=== PATIENT | female | born 1965 | race Two or more races ===

== ENCOUNTER 2020-09-16 10:43 | Inpatient (IN) | payer MEDICAID, OTHER ==
[~2020-09-16] VITALS: Ht 157.5 cm; Wt 56.7 kg
[2020-09-16] MEDS ORDERED: diphenhdrAMINE HCL 50 MG/1 ML VL IV ONE (11:00)
[2020-09-16] MEDS ORDERED: methylPREDNISolone SOD SUCC 125 MG/2 ML VL IV ONE (11:00)
[2020-09-16 11:34] LABS: Basophils # (auto) 0.1 10 ^3/uL (0-0.2); Basophils % (auto) 1.2 % (0.0-2.0); Eosinophils # (auto) 0.3 10 ^3/uL (0-0.8); Monocytes # (auto) 0.4 10 ^3/uL (0-1.3); White Blood Cell 6.4 10^3/uL (4.4-10.8)
[2020-09-16 11:37] LABS: Eosinophils % (auto) 5.4 % (0.0-7.0); Hematocrit 28.9 % (36.0-46.0); Hemoglobin 10.1 g/dL (12.2-16.2); Lymphocytes # (auto) 1.8 10 ^3/uL (0.4-5.4); Lymphocytes % (auto) 27.7 % (10.0-50.0); Mean Corpuscular Hemoglobin 30.1 pg (28.0-32.0); Mean Corpuscular Hgb Conc. 34.8 g/dL (32.0-36.0); Mean Corpuscular Volume 86.5 fL (80.0-100.0); Monocytes % (auto) 5.8 % (0.0-12.0); Neutrophils # (auto) 3.8 10 ^3/uL (1.6-8.6); Neutrophils % (auto) 59.9 % (37.0-80.0); Platelet Count (auto) 466 10^3/uL (140-450); Red Blood Cells 3.34 10^6/uL (4.0-5.20); Red Cell Distribution Width 15.7 % (11.8-14.3)
[2020-09-16 12:03] LABS: Albumin 1.9 g/dL (3.4-5.0); Calcium 8.9 mg/dL (8.5-10.1); Potassium 4.4 mmol/L (3.5-5.1)
[2020-09-16 12:08] LABS: Bilirubin, Total 0.3 mg/dL (0.2-1.0); Total Protein 6.4 g/dL (6.4-8.2)
[2020-09-16] MEDS ORDERED: DEXTROSE (50%) 50ML SYRG IV PRN (17:00)
[2020-09-16] MEDS ORDERED: NITROGLYCERIN 0.4 MG SL TAB SL PRN (17:00)
[2020-09-16] MEDS ORDERED: LABETALOL HCL 5 MG/ML 4ML SYRINGE IV PRN (17:00)
[2020-09-16] MEDS ORDERED: MORPHINE SULF INJ 2 MG/ML SYRINGE 1ML IV PRN (17:00)
[2020-09-16] MEDS ORDERED: diphenhdrAMINE HCL 50 MG/1 ML VL IV PRN (17:00)
[2020-09-16] MEDS: SODIUM CHLORIDE 0.9% 1,000 ML IV SCH (18:10)
[2020-09-16] MEDS: FAMOTIDINE INJECTION 40 MG in SODIUM CHL 0.9% 100 ML IV SCH (18:11)
[2020-09-16] MEDS: ACCU-CHEK COMFORT CURVE STRIP VI SCH ×2 (18:11→22:00)
[2020-09-16] MEDS: InsuLIN REG 1unit/0.01ml Soln (100units/ml) SC SCH ×2 (18:13→22:00)
[2020-09-16] MEDS: methylPREDNISolone SOD SUCC 125 MG/2 ML VL IV SCH (22:00)
[2020-09-17] VITALS (7 sets, daily range): BP systolic 141–171; BP diastolic 50–88
[2020-09-17] MEDS ORDERED: FURO1TAB33 PO (04:29)
[2020-09-17] MEDS ORDERED: INSLANTI SC (04:29)
[2020-09-17] MEDS ORDERED: LABE200T7 PO (04:29)
[2020-09-17] MEDS ORDERED: FAMO20TA10 PO (04:29)
[2020-09-17] MEDS ORDERED: ROSU20TA14 PO (04:29)
[2020-09-17] MEDS ORDERED: SPIR25TA8 PO (04:29)
[2020-09-17] MEDS ORDERED: AMLO-496 PO (04:29)
[2020-09-17] MEDS ORDERED: ASPI81CH45 PO (04:29)
[2020-09-17] MEDS ORDERED: MAGN400T40 PO (04:29)
[2020-09-17] MEDS ORDERED: RIV15T PO (04:29)
[2020-09-17] MEDS ORDERED: POSA1TAB PO (04:29)
[2020-09-17] MEDS: SODIUM CHLORIDE 0.9% 1,000 ML IV SCH ×3 (04:58→23:15)
[2020-09-17 05:50] LABS: Basophils # (auto) 0 10 ^3/uL (0-0.2); Basophils % (auto) 0.3 % (0.0-2.0); Eosinophils # (auto) 0 10 ^3/uL (0-0.8); Eosinophils % (auto) 0.1 % (0.0-7.0); Hemoglobin 9.7 g/dL (12.2-16.2); Lymphocytes # (auto) 1.7 10 ^3/uL (0.4-5.4); Lymphocytes % (auto) 23.9 % (10.0-50.0); Mean Corpuscular Hgb Conc. 33.4 g/dL (32.0-36.0); Mean Corpuscular Volume 86.7 fL (80.0-100.0); Monocytes # (auto) 0 10 ^3/uL (0-1.3); Monocytes % (auto) 0.7 % (0.0-12.0); Neutrophils # (auto) 5.3 10 ^3/uL (1.6-8.6); Platelet Count (auto) 479 10^3/uL (140-450); Red Blood Cells 3.35 10^6/uL (4.0-5.20); Red Cell Distribution Width 15.8 % (11.8-14.3); White Blood Cell 7.1 10^3/uL (4.4-10.8)
[2020-09-17 06:25] LABS: Albumin 1.9 g/dL (3.4-5.0); Calcium 8.3 mg/dL (8.5-10.1); Potassium 4.4 mmol/L (3.5-5.1)
[2020-09-17 06:28] LABS: BUN/Creatinine Ratio 15.5; Bilirubin, Total 0.3 mg/dL (0.2-1.0); Total Protein 6.2 g/dL (6.4-8.2)
[2020-09-17] MEDS ORDERED: PNEUMOCOCCAL VACC POLYS 25 MCG/0.5 ML VIAL IM ONE (06:45)
[2020-09-17] MEDS: InsuLIN REG 1unit/0.01ml Soln (100units/ml) SC SCH ×4 (07:38→22:20)
[2020-09-17] MEDS: ACCU-CHEK COMFORT CURVE STRIP VI SCH ×4 (07:38→22:16)
[2020-09-17] MEDS: methylPREDNISolone SOD SUCC 125 MG/2 ML VL IV SCH ×3 (08:02→22:16)
[2020-09-17] MEDS: FAMOTIDINE INJECTION 40 MG in SODIUM CHL 0.9% 100 ML IV SCH (10:00)
[2020-09-18] VITALS (23 sets, daily range): BP systolic 141–175; BP diastolic 45–75
[2020-09-18 05:57] LABS: Basophils # (auto) 0 10 ^3/uL (0-0.2); Eosinophils # (auto) 0 10 ^3/uL (0-0.8); Hemoglobin 9.1 g/dL (12.2-16.2); Lymphocytes # (auto) 1.1 10 ^3/uL (0.4-5.4); Monocytes % (auto) 2.2 % (0.0-12.0)
[2020-09-18 06:00] LABS: Basophils % (auto) 0.2 % (0.0-2.0); Hematocrit 27.3 % (36.0-46.0); Lymphocytes % (auto) 9.5 % (10.0-50.0); Mean Corpuscular Hemoglobin 28.9 pg (28.0-32.0); Mean Corpuscular Hgb Conc. 33.2 g/dL (32.0-36.0); Mean Corpuscular Volume 86.9 fL (80.0-100.0); Monocytes # (auto) 0.2 10 ^3/uL (0-1.3); Neutrophils # (auto) 10.1 10 ^3/uL (1.6-8.6); Neutrophils % (auto) 88.1 % (37.0-80.0); Platelet Count (auto) 512 10^3/uL (140-450); Red Blood Cells 3.14 10^6/uL (4.0-5.20); Red Cell Distribution Width 16.2 % (11.8-14.3); White Blood Cell 11.5 10^3/uL (4.4-10.8)
[2020-09-18] MEDS: methylPREDNISolone SOD SUCC 125 MG/2 ML VL IV SCH ×3 (06:13→22:24)
[2020-09-18] MEDS: ACCU-CHEK COMFORT CURVE STRIP VI SCH ×4 (06:14→23:44)
[2020-09-18] MEDS: InsuLIN REG 1unit/0.01ml Soln (100units/ml) SC SCH ×4 (06:14→23:45)
[2020-09-18 06:22] LABS: Potassium 4.3 mmol/L (3.5-5.1)
[2020-09-18 06:34] LABS: BUN/Creatinine Ratio 19.7; Bilirubin, Total 0.2 mg/dL (0.2-1.0); Calcium 8.2 mg/dL (8.5-10.1); Magnesium 2.7 mg/dL (1.6-2.6)
[2020-09-18 08:29] LABS: Alcohol, Urine < 3.0 mg/dL (0-10); Amphetamine Screen, Urine NEGATIVE (NEGATIVE); Barbiturate Scree,Urine NEGATIVE (NEGATIVE); Benzodiazephine Screen, Urine NEGATIVE (NEGATIVE); Cannabinoid Screen, Urine NEGATIVE (NEGATIVE); Cocaine Screen, Urine NEGATIVE (NEGATIVE); Opiate Scree,Urine NEGATIVE (NEGATIVE); Phencyclidine Screen, Urine NEGATIVE (NEGATIVE)
[2020-09-18] MEDS: LABETALOL HCL 5 MG/ML 4ML SYRINGE IV PRN ×4 (09:41→23:12)
[2020-09-18] MEDS: FAMOTIDINE INJECTION 40 MG in SODIUM CHL 0.9% 100 ML IV SCH (10:12)
[2020-09-18] MEDS: SODIUM CHLORIDE 0.9% 1,000 ML IV SCH (14:07)
[2020-09-18] MEDS ORDERED: amLODIPine BESYLATE 5 MG TAB PO ONE (15:30)
[2020-09-18] MEDS ORDERED: CHOLECALCIFEROL (VITD3) 2,000 UNIT CAP/TAB PO ONE (15:30)
[2020-09-18] MEDS ORDERED: SODIUM CHLORIDE 0.9% 1,000 ML IV SCH (15:30)
[2020-09-18] MEDS ORDERED: DEXTROSE (50%) 50ML SYRG IV PRN ×2 (19:15→20:45)
[2020-09-18] MEDS ORDERED: ACCU-CHEK COMFORT CURVE STRIP VI SCH (20:00)
[2020-09-18] MEDS ORDERED: InsuLIN REG 1unit/0.01ml Soln (100units/ml) SC SCH (20:00)
[2020-09-18] MEDS: LABETALOL HCL 200 MG TAB PO SCH (22:25)
[2020-09-18] MEDS: ATORVASTATIN 20 MG TAB PO SCH (22:25)
[2020-09-19] VITALS (18 sets, daily range): BP systolic 147–175; BP diastolic 47–67
[2020-09-19] MEDS: LABETALOL HCL 5 MG/ML 4ML SYRINGE IV PRN ×3 (03:11→21:52)
[2020-09-19] MEDS: ACCU-CHEK COMFORT CURVE STRIP VI SCH ×5 (04:00→19:42)
[2020-09-19] MEDS ORDERED: hydrALAZINE HCL 20 MG/ML VL IV ONE (04:15)
[2020-09-19] MEDS: InsuLIN REG 1unit/0.01ml Soln (100units/ml) SC SCH ×5 (04:37→19:50)
[2020-09-19] MEDS: methylPREDNISolone SOD SUCC 125 MG/2 ML VL IV SCH ×2 (05:51→13:33)
[2020-09-19 06:15] LABS: Basophils # (auto) 0 10 ^3/uL (0-0.2); Basophils % (auto) 0.1 % (0.0-2.0); Eosinophils # (auto) 0 10 ^3/uL (0-0.8); Hematocrit 26.5 % (36.0-46.0); Lymphocytes # (auto) 0.6 10 ^3/uL (0.4-5.4); Lymphocytes % (auto) 5.9 % (10.0-50.0); Mean Corpuscular Hemoglobin 29.5 pg (28.0-32.0); Mean Corpuscular Volume 86.6 fL (80.0-100.0); Monocytes # (auto) 0.2 10 ^3/uL (0-1.3); Monocytes % (auto) 2.1 % (0.0-12.0); Neutrophils # (auto) 8.8 10 ^3/uL (1.6-8.6); Neutrophils % (auto) 91.9 % (37.0-80.0); Platelet Count (auto) 427 10^3/uL (140-450); Red Blood Cells 3.05 10^6/uL (4.0-5.20); Red Cell Distribution Width 16.3 % (11.8-14.3); White Blood Cell 9.5 10^3/uL (4.4-10.8)
[2020-09-19 06:19] LABS: BUN/Creatinine Ratio 23.6; Calcium 7.7 mg/dL (8.5-10.1); Potassium 3.7 mmol/L (3.5-5.1)
[2020-09-19] MEDS: FAMOTIDINE INJECTION 40 MG in SODIUM CHL 0.9% 100 ML IV SCH (10:54)
[2020-09-19] MEDS: amLODIPine BESYLATE 5 MG TAB PO SCH (10:54)
[2020-09-19] MEDS: CHOLECALCIFEROL (VITD3) 2,000 UNIT CAP/TAB PO SCH (10:55)
[2020-09-19] MEDS: LABETALOL HCL 200 MG TAB PO SCH ×2 (10:55→22:00)
[2020-09-19] MEDS ORDERED: ACETAMINOPHEN 500 MG TAB PO PRN (12:30)
[2020-09-19] MEDS: methylPREDNISolone SOD SUCC 40 MG/ML VL IV SCH (21:51)
[2020-09-19] MEDS ORDERED: methylPREDNISolone SOD SUCC 125 MG/2 ML VL IV SCH (22:00)
[2020-09-19] MEDS: ATORVASTATIN 20 MG TAB PO SCH (22:00)
[2020-09-19] MEDS: INSULIN LANTUS (GLARGINE) 1 /0.01ml (100units/ml) SC SCH (22:04)
[2020-09-20] MEDS: InsuLIN REG 1unit/0.01ml Soln (100units/ml) SC SCH ×6 (00:01→21:21)
[2020-09-20] MEDS: ACCU-CHEK COMFORT CURVE STRIP VI SCH ×6 (04:04→21:24)
[2020-09-20 05:00] VITALS: BP 148/64
[2020-09-20 06:11] LABS: Magnesium 2.6 mg/dL (1.6-2.6); Potassium 3.8 mmol/L (3.5-5.1)
[2020-09-20 06:15] LABS: BUN/Creatinine Ratio 24.3
[2020-09-20 08:00] VITALS: BP 179/78
[2020-09-20] MEDS: LABETALOL HCL 5 MG/ML 4ML SYRINGE IV PRN ×3 (09:21→14:36)
[2020-09-20] MEDS: CHOLECALCIFEROL (VITD3) 2,000 UNIT CAP/TAB PO SCH (10:00)
[2020-09-20] MEDS: LABETALOL HCL 200 MG TAB PO SCH ×3 (10:00→21:26)
[2020-09-20] MEDS: methylPREDNISolone SOD SUCC 40 MG/ML VL IV SCH ×2 (11:10→21:25)
[2020-09-20] MEDS: amLODIPine BESYLATE 5 MG TAB PO SCH (11:11)
[2020-09-20] MEDS: FAMOTIDINE INJECTION 40 MG in SODIUM CHL 0.9% 100 ML IV SCH (11:30)
[2020-09-20 12:00] VITALS: BP 166/77
[2020-09-20] MEDS: cefTRIAXone 1GM/50ML D5W 50 ML IV SCH (12:41)
[2020-09-20] MEDS: AZITHROMYCIN 500MG/ 250ML 250 ML IV SCH (13:00)
[2020-09-20 13:16] LABS: Nucleated Red Blood Cells % 0.2 %; Platelet Count (auto) 410 10^3/uL (140-450)
[2020-09-20 13:43] LABS: Basophils # (auto) 0 10 ^3/uL (0-0.2); Basophils % (auto) 0.3 % (0.0-2.0); Eosinophils # (auto) 0 10 ^3/uL (0-0.8); Hematocrit 27.9 % (36.0-46.0); Hemoglobin 9.3 g/dL (12.2-16.2); Lymphocytes # (auto) 0.5 10 ^3/uL (0.4-5.4); Lymphocytes % (auto) 5.3 % (10.0-50.0); Mean Corpuscular Hemoglobin 29.1 pg (28.0-32.0); Mean Corpuscular Hgb Conc. 33.2 g/dL (32.0-36.0); Mean Corpuscular Volume 87.7 fL (80.0-100.0); Monocytes # (auto) 0.2 10 ^3/uL (0-1.3); Neutrophils # (auto) 9.6 10 ^3/uL (1.6-8.6); Neutrophils % (auto) 92.4 % (37.0-80.0); Red Blood Cells 3.19 10^6/uL (4.0-5.20); Red Cell Distribution Width 16.6 % (11.8-14.3); White Blood Cell 10.4 10^3/uL (4.4-10.8)
[2020-09-20 16:00] VITALS: BP 143/64
[2020-09-20] MEDS: INSULIN LANTUS (GLARGINE) 1 /0.01ml (100units/ml) SC SCH (21:22)
[2020-09-20] MEDS: ATORVASTATIN 20 MG TAB PO SCH (21:25)
[2020-09-20 22:00] VITALS: BP 148/61
[2020-09-21] MEDS: InsuLIN REG 1unit/0.01ml Soln (100units/ml) SC SCH ×6 (00:29→21:29)
[2020-09-21] MEDS: ACCU-CHEK COMFORT CURVE STRIP VI SCH ×6 (00:32→21:28)
[2020-09-21 05:00] VITALS: BP 156/65
[2020-09-21 05:24] LABS: Basophils # (auto) 0 10 ^3/uL (0-0.2); Eosinophils # (auto) 0 10 ^3/uL (0-0.8); Eosinophils % (auto) 0.1 % (0.0-7.0); Hematocrit 27.4 % (36.0-46.0); Lymphocytes # (auto) 0.4 10 ^3/uL (0.4-5.4); Lymphocytes % (auto) 4.3 % (10.0-50.0); Mean Corpuscular Hemoglobin 29.3 pg (28.0-32.0); Mean Corpuscular Hgb Conc. 32.8 g/dL (32.0-36.0); Mean Corpuscular Volume 89.2 fL (80.0-100.0); Monocytes # (auto) 0.3 10 ^3/uL (0-1.3); Monocytes % (auto) 3.1 % (0.0-12.0); Neutrophils # (auto) 9.2 10 ^3/uL (1.6-8.6); Neutrophils % (auto) 92.5 % (37.0-80.0); Nucleated Red Blood Cells % 0.1 %; Platelet Count (auto) 341 10^3/uL (140-450); Red Blood Cells 3.07 10^6/uL (4.0-5.20); Red Cell Distribution Width 16.6 % (11.8-14.3)
[2020-09-21 05:43] LABS: Albumin 2.1 g/dL (3.4-5.0); Calcium 7.9 mg/dL (8.5-10.1); Potassium 3.7 mmol/L (3.5-5.1)
[2020-09-21 05:48] LABS: BUN/Creatinine Ratio 24.9; Bilirubin, Total 0.4 mg/dL (0.2-1.0); Total Protein 5.4 g/dL (6.4-8.2)
[2020-09-21 09:00] VITALS: BP 174/61
[2020-09-21] MEDS: cefTRIAXone 1GM/50ML D5W 50 ML IV SCH (09:30)
[2020-09-21] MEDS: LABETALOL HCL 5 MG/ML 4ML SYRINGE IV PRN ×2 (09:44→13:31)
[2020-09-21] MEDS: methylPREDNISolone SOD SUCC 40 MG/ML VL IV SCH ×2 (09:44→21:42)
[2020-09-21] MEDS: AZITHROMYCIN 500MG/ 250ML 250 ML IV SCH (09:44)
[2020-09-21] MEDS: amLODIPine BESYLATE 5 MG TAB PO SCH (10:00)
[2020-09-21] MEDS: LABETALOL HCL 200 MG TAB PO SCH ×2 (10:00→21:41)
[2020-09-21] MEDS: CHOLECALCIFEROL (VITD3) 2,000 UNIT CAP/TAB PO SCH (10:00)
[2020-09-21] MEDS: FAMOTIDINE INJECTION 40 MG in SODIUM CHL 0.9% 100 ML IV SCH (11:00)
[2020-09-21 13:00] VITALS: BP 167/66
[2020-09-21] MEDS ORDERED: cloNIDine 0.1 mg/24hr 7 DAY PATCH TD SCH (15:45)
[2020-09-21] MEDS ORDERED: FUROSEMIDE 40 MG/4 ML VIAL IV ONE (15:45)
[2020-09-21 17:00] VITALS: BP 150/70
[2020-09-21] MEDS ORDERED: TPN PER PHARMACY 0 ML IV SCH (18:30)
[2020-09-21] MEDS ORDERED: AMINO ACID INFUSION IN D10W 1,000 ML IV NR (20:00)
[2020-09-21] MEDS: INSULIN LANTUS (GLARGINE) 1 /0.01ml (100units/ml) SC SCH (21:34)
[2020-09-21] MEDS: ATORVASTATIN 20 MG TAB PO SCH (21:40)
[2020-09-21 22:06] VITALS: BP 175/70
[2020-09-22] MEDS: InsuLIN REG 1unit/0.01ml Soln (100units/ml) SC SCH ×6 (00:46→21:00)
[2020-09-22] MEDS: ACCU-CHEK COMFORT CURVE STRIP VI SCH ×6 (00:46→21:04)
[2020-09-22] MEDS: LABETALOL HCL 5 MG/ML 4ML SYRINGE IV PRN ×2 (03:50→23:42)
[2020-09-22 05:10] VITALS: BP 175/73
[2020-09-22 06:50] LABS: Basophils # (auto) 0 10 ^3/uL (0-0.2); Basophils % (auto) 0.2 % (0.0-2.0); Eosinophils # (auto) 0 10 ^3/uL (0-0.8); Hematocrit 26.4 % (36.0-46.0); Hemoglobin 8.8 g/dL (12.2-16.2); Lymphocytes # (auto) 0.4 10 ^3/uL (0.4-5.4); Lymphocytes % (auto) 4.1 % (10.0-50.0); Mean Corpuscular Hemoglobin 29.2 pg (28.0-32.0); Mean Corpuscular Hgb Conc. 33.4 g/dL (32.0-36.0); Mean Corpuscular Volume 87.4 fL (80.0-100.0); Monocytes # (auto) 0.3 10 ^3/uL (0-1.3); Monocytes % (auto) 3.4 % (0.0-12.0); Neutrophils # (auto) 8.1 10 ^3/uL (1.6-8.6); Neutrophils % (auto) 92.3 % (37.0-80.0); Nucleated Red Blood Cells % 0.1 %; Platelet Count (auto) 317 10^3/uL (140-450); Red Blood Cells 3.02 10^6/uL (4.0-5.20); Red Cell Distribution Width 16.4 % (11.8-14.3); White Blood Cell 8.8 10^3/uL (4.4-10.8)
[2020-09-22 07:06] LABS: Albumin 2.2 g/dL (3.4-5.0); BUN/Creatinine Ratio 25.9; Calcium 7.7 mg/dL (8.5-10.1); Magnesium 2.4 mg/dL (1.6-2.6); Phosphorus 3.5 mg/dL (2.5-4.90); Potassium 3.1 mmol/L (3.5-5.1)
[2020-09-22 07:10] LABS: Bilirubin, Total 0.4 mg/dL (0.2-1.0); Total Protein 5.5 g/dL (6.4-8.2)
[2020-09-22 07:12] LABS: Pre Albumin 24.1 mg/dL (20.0-40.0)
[2020-09-22] MEDS: cefTRIAXone 1GM/50ML D5W 50 ML IV SCH (08:30)
[2020-09-22 09:00] VITALS: BP 179/61
[2020-09-22] MEDS: methylPREDNISolone SOD SUCC 40 MG/ML VL IV SCH ×2 (09:34→21:22)
[2020-09-22] MEDS: LABETALOL HCL 200 MG TAB PO SCH ×2 (09:35→21:23)
[2020-09-22] MEDS: AZITHROMYCIN 500MG/ 250ML 250 ML IV SCH (09:35)
[2020-09-22] MEDS: amLODIPine BESYLATE 5 MG TAB PO SCH (09:35)
[2020-09-22] MEDS: CHOLECALCIFEROL (VITD3) 2,000 UNIT CAP/TAB PO SCH (09:36)
[2020-09-22] MEDS ORDERED: FUROSEMIDE 40 MG/4 ML VIAL IV SCH (10:00)
[2020-09-22] MEDS: FAMOTIDINE INJECTION 40 MG in SODIUM CHL 0.9% 100 ML IV SCH (11:30)
[2020-09-22] MEDS: Glucerna Carbsteady SHAKE Vanilla 8oz PO SCH ×2 (12:00→18:04)
[2020-09-22] MEDS: POTASSIUM CHL 20MEQ/100ML 100 ML IV SCH ×2 (12:00→14:22)
[2020-09-22 13:00] VITALS: BP 151/67
[2020-09-22 17:00] VITALS: BP 144/56
[2020-09-22] MEDS ORDERED: TPN PER PHARMACY IV NR ×9 (20:00)
[2020-09-22] MEDS ORDERED: LORazepam 2MG/ML-1ML VIAL IV PRN (21:00)
[2020-09-22] MEDS: INSULIN LANTUS (GLARGINE) 1 /0.01ml (100units/ml) SC SCH (21:01)
[2020-09-22] MEDS: ATORVASTATIN 20 MG TAB PO SCH (21:22)
[2020-09-22 21:30] VITALS: BP 183/68
[2020-09-23] MEDS: InsuLIN REG 1unit/0.01ml Soln (100units/ml) SC SCH ×6 (01:02→20:36)
[2020-09-23] MEDS: ACCU-CHEK COMFORT CURVE STRIP VI SCH ×6 (01:08→20:33)
[2020-09-23 05:00] VITALS: BP 150/64
[2020-09-23 06:12] LABS: Basophils # (auto) 0 10 ^3/uL (0-0.2); Basophils % (auto) 0.1 % (0.0-2.0); Eosinophils # (auto) 0 10 ^3/uL (0-0.8); Hematocrit 27.7 % (36.0-46.0); Hemoglobin 9.3 g/dL (12.2-16.2); Lymphocytes # (auto) 0.3 10 ^3/uL (0.4-5.4); Lymphocytes % (auto) 2.6 % (10.0-50.0); Mean Corpuscular Hemoglobin 29.4 pg (28.0-32.0); Mean Corpuscular Hgb Conc. 33.8 g/dL (32.0-36.0); Mean Corpuscular Volume 87.2 fL (80.0-100.0); Monocytes # (auto) 0.4 10 ^3/uL (0-1.3); Monocytes % (auto) 2.9 % (0.0-12.0); Neutrophils # (auto) 11.8 10 ^3/uL (1.6-8.6); Neutrophils % (auto) 94.4 % (37.0-80.0); Platelet Count (auto) 284 10^3/uL (140-450); Red Blood Cells 3.17 10^6/uL (4.0-5.20); Red Cell Distribution Width 15.9 % (11.8-14.3); White Blood Cell 12.6 10^3/uL (4.4-10.8)
[2020-09-23 06:34] LABS: Potassium 3.6 mmol/L (3.5-5.1)
[2020-09-23 06:45] LABS: Albumin 2.1 g/dL (3.4-5.0); BUN/Creatinine Ratio 24.9; Bilirubin, Total 0.4 mg/dL (0.2-1.0); Calcium 7.6 mg/dL (8.5-10.1); Magnesium 2.4 mg/dL (1.6-2.6); Phosphorus 2.6 mg/dL (2.5-4.90); Total Protein 5.2 g/dL (6.4-8.2)
[2020-09-23] MEDS: Glucerna Carbsteady SHAKE Vanilla 8oz PO SCH ×3 (08:00→18:00)
[2020-09-23 08:44] VITALS: BP 162/75
[2020-09-23] MEDS: cefTRIAXone 1GM/50ML D5W 50 ML IV SCH (08:55)
[2020-09-23] MEDS: CHOLECALCIFEROL (VITD3) 2,000 UNIT CAP/TAB PO SCH (10:00)
[2020-09-23] MEDS: AZITHROMYCIN 500MG/ 250ML 250 ML IV SCH (10:00)
[2020-09-23] MEDS: FAMOTIDINE INJECTION 40 MG in SODIUM CHL 0.9% 100 ML IV SCH (10:00)
[2020-09-23] MEDS: LABETALOL HCL 200 MG TAB PO SCH ×2 (10:05→21:47)
[2020-09-23] MEDS: amLODIPine BESYLATE 5 MG TAB PO SCH (10:10)
[2020-09-23] MEDS ORDERED: ASPirin-EC 81 mg tab PO ONE (12:00)
[2020-09-23 12:39] VITALS: BP 180/66
[2020-09-23 17:00] VITALS: BP 152/74
[2020-09-23] MEDS ORDERED: TPN PER PHARMACY IV NR ×10 (20:00)
[2020-09-23 21:00] VITALS: BP 166/67
[2020-09-23] MEDS: methylPREDNISolone SOD SUCC 40 MG/ML VL IV SCH (21:46)
[2020-09-23] MEDS: ATORVASTATIN 20 MG TAB PO SCH (21:47)
[2020-09-23] MEDS: INSULIN LANTUS (GLARGINE) 1 /0.01ml (100units/ml) SC SCH (22:00)
[2020-09-24] MEDS: ACCU-CHEK COMFORT CURVE STRIP VI SCH ×6 (00:04→21:40)
[2020-09-24] MEDS: InsuLIN REG 1unit/0.01ml Soln (100units/ml) SC SCH ×5 (00:07→17:57)
[2020-09-24 05:36] VITALS: BP 154/73
[2020-09-24 07:32] LABS: Basophils # (auto) 0 10 ^3/uL (0-0.2); Basophils % (auto) 0.1 % (0.0-2.0); Eosinophils # (auto) 0 10 ^3/uL (0-0.8); Eosinophils % (auto) 0.1 % (0.0-7.0); Hematocrit 28.4 % (36.0-46.0); Hemoglobin 9.5 g/dL (12.2-16.2); Lymphocytes # (auto) 0.5 10 ^3/uL (0.4-5.4); Lymphocytes % (auto) 5.5 % (10.0-50.0); Mean Corpuscular Hemoglobin 29.7 pg (28.0-32.0); Mean Corpuscular Hgb Conc. 33.6 g/dL (32.0-36.0); Mean Corpuscular Volume 88.4 fL (80.0-100.0); Monocytes # (auto) 0.3 10 ^3/uL (0-1.3); Neutrophils % (auto) 91.3 % (37.0-80.0); Nucleated Red Blood Cells % 0.1 %; Platelet Count (auto) 239 10^3/uL (140-450); Red Blood Cells 3.21 10^6/uL (4.0-5.20); Red Cell Distribution Width 16.2 % (11.8-14.3); White Blood Cell 9.9 10^3/uL (4.4-10.8)
[2020-09-24 07:44] LABS: Calcium 7.6 mg/dL (8.5-10.1); Potassium 3.5 mmol/L (3.5-5.1)
[2020-09-24 07:48] LABS: BUN/Creatinine Ratio 27.1; INR 1.03 (0.9-1.15)
[2020-09-24] MEDS: Glucerna Carbsteady SHAKE Vanilla 8oz PO SCH ×3 (08:00→18:00)
[2020-09-24] MEDS ORDERED: fentaNYL CITRATE 100 MCG/2 ML VL IV ONE (08:15)
[2020-09-24] MEDS ORDERED: LIDOCAINE VISCOUS 2% 15ML UD MT ONE (08:15)
[2020-09-24] MEDS ORDERED: MIDAZOLAM HCL 1MG/1ML-2 ML VIAL IV ONE (08:15)
[2020-09-24 09:00] VITALS: BP 159/96
[2020-09-24] MEDS ORDERED: ONDANSETRON HCL 4 MG/2 ML VIAL IV ONE (09:30)
[2020-09-24] MEDS: LABETALOL HCL 5 MG/ML 4ML SYRINGE IV PRN (10:21)
[2020-09-24] MEDS: LABETALOL HCL 200 MG TAB PO SCH ×3 (10:21→21:39)
[2020-09-24] MEDS: cefTRIAXone 1GM/50ML D5W 50 ML IV SCH (12:14)
[2020-09-24] MEDS: methylPREDNISolone SOD SUCC 40 MG/ML VL IV SCH (12:14)
[2020-09-24] MEDS: CHOLECALCIFEROL (VITD3) 2,000 UNIT CAP/TAB PO SCH (12:15)
[2020-09-24] MEDS: ASPirin-EC 81 mg tab PO SCH (12:15)
[2020-09-24] MEDS: amLODIPine BESYLATE 5 MG TAB PO SCH (12:23)
[2020-09-24] MEDS: FAMOTIDINE INJECTION 40 MG in SODIUM CHL 0.9% 100 ML IV SCH (12:53)
[2020-09-24 13:00] VITALS: BP 164/71
[2020-09-24] MEDS: AZITHROMYCIN 500MG/ 250ML 250 ML IV SCH (13:22)
[2020-09-24] MEDS ORDERED: NIFEdipine ER 30 MG TAB PO ONE (15:00)
[2020-09-24] MEDS ORDERED: DEXTROSE (50%) 50ML SYRG IV PRN (15:00)
[2020-09-24 17:00] VITALS: BP 157/70
[2020-09-24] MEDS: RIVAROXABAN 15 MG TAB PO SCH (18:52)
[2020-09-24 21:00] VITALS: BP 123/57
[2020-09-24] MEDS: ATORVASTATIN 20 MG TAB PO SCH (21:38)
[2020-09-24] MEDS: INSULIN LANTUS (GLARGINE) 1 /0.01ml (100units/ml) SC SCH (21:40)
[2020-09-24] MEDS ORDERED: InsuLIN REG 1unit/0.01ml Soln (100units/ml) SC SCH (22:00)
[2020-09-25 05:31] VITALS: BP 159/74
[2020-09-25] MEDS: ACCU-CHEK COMFORT CURVE STRIP VI SCH ×3 (06:16→17:00)
[2020-09-25] MEDS: InsuLIN REG 1unit/0.01ml Soln (100units/ml) SC SCH ×3 (06:16→17:00)
[2020-09-25 08:07] LABS: BUN/Creatinine Ratio 26.2; Calcium 7.4 mg/dL (8.5-10.1); Potassium 3.4 mmol/L (3.5-5.1)
[2020-09-25] MEDS: cefTRIAXone 1GM/50ML D5W 50 ML IV SCH (08:30)
[2020-09-25] MEDS: Glucerna Carbsteady SHAKE Vanilla 8oz PO SCH ×2 (08:30→12:00)
[2020-09-25 09:08] VITALS: BP 148/68
[2020-09-25] MEDS ORDERED: LISINOPRIL 5 MG TAB PO SCH (10:00)
[2020-09-25] MEDS ORDERED: NIFEdipine ER 30 MG TAB PO SCH (10:00)
[2020-09-25] MEDS ORDERED: predniSONE 20 MG TAB PO SCH (10:00)
[2020-09-25] MEDS: CHOLECALCIFEROL (VITD3) 2,000 UNIT CAP/TAB PO SCH (10:16)
[2020-09-25] MEDS: ASPirin-EC 81 mg tab PO SCH (10:17)
[2020-09-25] MEDS: LABETALOL HCL 200 MG TAB PO SCH (10:17)
[2020-09-25] MEDS: FAMOTIDINE INJECTION 40 MG in SODIUM CHL 0.9% 100 ML IV SCH (10:21)
[2020-09-25] MEDS ORDERED: NIFE1TAB31 PO (10:41)
[2020-09-25] MEDS ORDERED: METH4PAK PO (10:41)
[2020-09-25] MEDS ORDERED: CHOL1CAP47 PO (10:41)
[2020-09-25] MEDS ORDERED: LISI20TA28 PO (10:42)
[2020-09-25] MEDS ORDERED: DEXTROSE (50%) 50ML SYRG IV PRN (10:45)
[2020-09-25] MEDS ORDERED: POTASSIUM EFFERVESENT TAB 25 MEQ PO ONE (11:00)
[2020-09-25 12:50] VITALS: BP 97/44
[2020-09-25 13:20] VITALS: BP 97/44
[2020-09-25 16:50] VITALS: BP 150/68
[2020-09-25] MEDS: RIVAROXABAN 15 MG TAB PO SCH (17:53)
[2020-09-25] MEDS ORDERED: Glucerna Carbsteady SHAKE Vanilla 8oz PO SCH (18:00)
[2020-09-25] MEDS ORDERED: INSULIN LANTUS (GLARGINE) 1 /0.01ml (100units/ml) SC SCH (22:00)
[2020-09-25] MEDS ORDERED: FAMOTIDINE 20 MG TAB PO SCH (22:00)
[2020-09-26] MEDS ORDERED: predniSONE 20 MG TAB PO SCH (10:00)
[2020-09-26] MEDS ORDERED: LISINOPRIL 10 MG TAB PO SCH (10:00)
== END 2020-09-25 20:04 | disposition home or self-care (01) | DRG 45 ==
LOC: ER 10:43 → DOU 16:48 → DOU IN ICU 09-17 02:06 → TELE-EAST 09-19 17:18
PROVIDERS: ADMIT Nurse Practitioner Acute Care; ATTEND Internal Medicine
PROC: 0W9B3ZZ Drainage of Left Pleural Cavity, Percutaneous Approach (ICD-10-PCS; principal; 2020-09-20)
PROC: B24BZZ4 Ultrasonography of Heart with Aorta, Transesophageal (ICD-10-PCS; 2020-09-24)
DX: I63.81 Other cerebral infarction due to occlusion or stenosis of small artery (principal); N17.0 Acute kidney failure with tubular necrosis; E43 Unspecified severe protein-calorie malnutrition; J90 Pleural effusion, not elsewhere classified; J18.8 Other pneumonia, unspecified organism; E11.22 Type 2 diabetes mellitus with diabetic chronic kidney disease; E11.42 Type 2 diabetes mellitus with diabetic polyneuropathy; Z20.822 Contact with and (suspected) exposure to COVID-19; T78.3XXA Angioneurotic edema, initial encounter; N18.32 Chronic kidney disease, stage 3b; I13.0 Hypertensive heart and chronic kidney disease with heart failure and stage 1 through stage 4 chronic kidney disease, or unspecified chronic kidney disease; I50.9 Heart failure, unspecified; I31.3 Pericardial effusion (noninflammatory); E55.9 Vitamin D deficiency, unspecified; E87.0 Hyperosmolality and hypernatremia; T38.0X5A Adverse effect of glucocorticoids and synthetic analogues, initial encounter; E78.00 Pure hypercholesterolemia, unspecified; E78.5 Hyperlipidemia, unspecified; R47.1 Dysarthria and anarthria; D72.829 Elevated white blood cell count, unspecified; Z90.49 Acquired absence of other specified parts of digestive tract; Z79.82 Long term (current) use of aspirin; Z79.899 Other long term (current) drug therapy; Z82.49 Family history of ischemic heart disease and other diseases of the circulatory system; Z83.3 Family history of diabetes mellitus; Z89.512 Acquired absence of left leg below knee; Z79.4 Long term (current) use of insulin
CPT/HCPCS: 36415; 70450; 70490; 70551; 71045; 71250; 76604; 76942; 80048; 80053; 80061; 80307; 82040; 82306; 82962; 83036; 83615; 83735; 83986; 84100; 84443; 84478; 85025; 85610; 86850; 86900; 86901; 87081; 87205; 87426; 89051; 92507; 92610; 93312; 93886; 96365; 96375; 97110; 97530; 99152; G0378; J0696; J1815; J2250; J2405; J3480; J3490

== ENCOUNTER 2020-09-30 17:28 | Emergency (ER) | payer MEDICAID ==
[~2020-09-30] VITALS: Ht 160 cm; Wt 59.0 kg
[~2020-09-30 17:28] MED LIST: ASPI81CH45 PO; CHOL1CAP47 PO; FAMO20TA10 PO; FURO1TAB33 PO; INSLANTI SC; LABE200T7 PO; LISI20TA28 PO; MAGN400T40 PO; METH4PAK PO; NIFE1TAB31 PO; POSA1TAB PO; RIV15T PO; ROSU20TA14 PO
[2020-09-30 18:44] LABS: Alanine Aminotransferase 73 U/L (13-56); Albumin 2.1 g/dL (3.4-5.0); Anion Gap 11 (5-15); Aspartate Aminotransferase 40 U/L (15-37); BUN/Creatinine Ratio 13.5; Basophils # (auto) 0 10 ^3/uL (0-0.2); Basophils % (auto) 0.2 % (0.0-2.0); Blood Urea Nitrogen 28 mg/dL (7-18); Calcium 7.3 mg/dL (8.5-10.1); Carbon Dioxide 19 mmol/L (21-32); Chloride 106 mmol/L (98-107); Eosinophils # (auto) 0.2 10 ^3/uL (0-0.8); Eosinophils % (auto) 2.4 % (0.0-7.0); GFR African American 32 mL/min; GFR Non-African American 27 mL/min; Hematocrit 26.6 % (36.0-46.0); Hemoglobin 9.2 g/dL (12.2-16.2); Lymphocytes # (auto) 1.5 10 ^3/uL (0.4-5.4); Lymphocytes % (auto) 17.8 % (10.0-50.0); Magnesium 1.9 mg/dL (1.6-2.6); Mean Corpuscular Hemoglobin 29.5 pg (28.0-32.0); Mean Corpuscular Hgb Conc. 34.5 g/dL (32.0-36.0); Mean Corpuscular Volume 85.3 fL (80.0-100.0); Monocytes # (auto) 0.6 10 ^3/uL (0-1.3); Monocytes % (auto) 6.6 % (0.0-12.0); Neutrophils # (auto) 6.3 10 ^3/uL (1.6-8.6); Platelet Count (auto) 191 10^3/uL (140-450); Potassium 3.8 mmol/L (3.5-5.1); Red Blood Cells 3.12 10^6/uL (4.0-5.20); Red Cell Distribution Width 14.7 % (11.8-14.3); Sodium 136 mmol/L (136-145); White Blood Cell 8.6 10^3/uL (4.4-10.8)
[2020-09-30 18:49] LABS: Alkaline Phosphatase 127 U/L (45-117); Bilirubin, Total 0.4 mg/dL (0.2-1.0); Total Protein 4.9 g/dL (6.4-8.2)
[2020-09-30 18:56] LABS: Glucose 413 mg/dL (74-106)
[2020-09-30] MEDS ORDERED: InsuLIN REG 1unit/0.01ml Soln (100units/ml) IV ONE (19:00)
[2020-09-30] MEDS ORDERED: SODIUM CHLORIDE 0.9% 500 ML IV ONE ×2 (19:00→20:10)
[2020-09-30 22:00] VITALS: BP 142/56
== END 2020-09-30 22:20 | disposition home or self-care (01) ==
LOC: ER 17:28
DX: R06.02 Shortness of breath (principal); R73.9 Hyperglycemia, unspecified; E11.9 Type 2 diabetes mellitus without complications; I10 Essential (primary) hypertension; E78.5 Hyperlipidemia, unspecified; Z90.49 Acquired absence of other specified parts of digestive tract
CPT/HCPCS: 36415; 71045; 80053; 82962; 83735; 84484; 85025; 93005; 96361; 96374; 99285; J1815; J7040